=== PATIENT | female | born 1980 | race Hispanic/Latino ===

== ENCOUNTER 2022-06-13 18:46 | Emergency (ER) | payer SELFPAY ==
[~2022-06-13] VITALS: Ht 160 cm; Wt 77.1 kg
== END 2022-06-13 21:35 | disposition home or self-care (01) ==
LOC: ER 18:56
DX: S06.0X0A Concussion without loss of consciousness, initial encounter (principal); H53.8 Other visual disturbances; W22.09XA Striking against other stationary object, initial encounter; Y93.01 Activity, walking, marching and hiking; Y92.89 Other specified places as the place of occurrence of the external cause
CPT/HCPCS: 70450; 99283